=== PATIENT | male | born 1990 | race Caucasian/White ===

== ENCOUNTER 2023-12-31 11:12 | Outpatient (REF) | payer SELFPAY ==
[2023-12-31 14:50] LABS: Cholesterol 247 mg/dL (<200); HDL Cholesterol 49 mg/dL (>40); LDL Cholesterol Calculated 147 mg/dL (<100); Triglycerides 258 mg/dL (<150)
[2024-01-01 05:15] LABS: HIV AB/AG Nonreactive (Nonreactive); HIV Num 1 0.04 S/CO (0.00-0.99); ~HepC Num1 0.06 S/CO (0.00-0.79); ~Hepatitis C Antibody Nonreactive (Nonreactive)
[2024-01-02 12:38] LABS: RPR Rapid Plasma Reagin NON-REACTIVE (NON-REACTIVE)
[2024-01-03 07:24] LABS: TS Negative Control Passed; TS Panel A 0; TS Panel B 1; TS Positive Control Passed; TSpotTB Negative (Negative)
== END 2023-12-31 11:13 | disposition home or self-care (01) ==
LOC: HO.HHCL 11:12
PROVIDERS: Visit Provider General Practice
DX: Z00.00 Encounter for general adult medical examination without abnormal findings (principal)
CPT/HCPCS: 36415; 80061; 86481; 86592; 86803; 87389

== ENCOUNTER 2024-02-03 10:15 | Outpatient (REF) | payer MEDICAID, SELFPAY ==
--- NOTE | ~2024-02-03 | US_ITS ---
EXAMINATION: US ABDOMEN COMPLETE CLINICAL INFORMATION: History of fatty liver and transaminitis. COMPARISON: None available. TECHNIQUE: Real-time imaging of the abdominal viscera. FINDINGS: PANCREAS: Normal. ABDOMINAL AORTA: The proximal, mid, and distal segments are normal in caliber. INFERIOR VENA CAVA: Visualized portions are normal. LIVER: The liver is normal in size. The liver contour is normal. There is slightly increased liver parenchymal echogenicity. No focal hepatic lesion. There is no intrahepatic biliary duct dilatation seen. GALLBLADDER: Normal. The gallbladder is physiologically distended without evidence of stones, sludge, polyps, wall thickening or pericholecystic fluid. COMMON BILE DUCT: Normal in caliber measuring 0.4 cm in diameter. RIGHT KIDNEY: Normal. No hydronephrosis. No renal calculi or focal parenchymal lesions. The kidney measures 9.1 cm in maximum dimension. LEFT KIDNEY: Normal. No hydronephrosis. No renal calculi or focal parenchymal lesions. The kidney measures 10.5 cm in maximum dimension. SPLEEN: Normal. The spleen measures 10.1 cm in maximum dimension. FREE FLUID: None. US/US abdomen complete IMPRESSION: There is slight increase in hepatic echotexture, consistent with fatty infiltration or hepatocellular disease. Please correlate clinically. No focal hepatic mass or intrahepatic biliary dilatation is seen. Electronically signed by: Hamzah Kennedy MD 03/04/2024 04:25 PM EST
== END 2024-02-03 10:16 | disposition home or self-care (01) ==
LOC: HO.HMGCX 10:15
PROVIDERS: PCP General Practice; Visit Provider General Practice
DX: K76.0 Fatty (change of) liver, not elsewhere classified (principal)
CPT/HCPCS: 76700

== ENCOUNTER 2024-11-09 11:07 | Outpatient (REF) | payer MEDICAID, SELFPAY ==
--- OUTSIDE RECORDS SUMMARY | 2024-11-10 12:10 | XMS_ITS | Patient Health Record ---
[facility] Organization [facility] Address [address] [place] [address] [address] [place] [address] Care Team Providers Care Watchguard Name Role Phone KING BURNS Primary Care Provider [phone] Reason For Referral No Information Medications Medication SIG (Take, Route, Fr equency, Duration) Notes Start Date End Date Status Adderall 10 MG 1 tablet Orally Once a day; Duration: 28 days 05/07/2019 Active Social History Tobacco Use: Social History Observation Description Date Details (start date - stop date) Never Smoker NA - NA Tobacco Use/Smoking Question Answer Notes Are you a nonsmoker Alcohol Screen (Audit-C) Question Answer Notes Did you have a drink containing alcohol in the p ast year? No Points 0 Interpretation Negative Problems Problem Type SNOMED Code ICD Code Onset Dates Problem Status W/U Status Risk Notes Problem Attention deficit hyperactivity disorder (585508536) Attention-deficit hyperactivity disorder, unspecified type (F90.9) Active confirmed Problem Adult health examination (523005100) Encounter for general adult medical examination without abnormal findings (Z00.00) Active confirmed Problem Sexually transmitted infectious disease (2754526) Encounter for screening for infections with a predominantly sexual mode of transmission (Z11.3) Active confirmed Plan Of Treatment Pending Test Test Name Order Date CHLAMYDIA / GC DNA W RFLX 12/18/2017 Future Test Test Name Order Date COMPREHENSIVE METABOLIC PANEL 11/29/2019 LIPID PANEL 11/29/2019 Insurance Providers Payer Name Payer Address Payer Phone Subscriber Number Group Number Insured Name Patient Relationship to Insured Coverage Start Date Coverage End Date [facility] I [address] [address] [place] [address] [id number] Ray Grossman Self - patient is the insured [place] [address] [place] [address] [id number] Ray Grossman Self - patient is the insured Medical (General) History Hospitalization History Reason Date(Month/Year)
--- OUTSIDE RECORDS SUMMARY | 2024-11-10 12:10 | XMS_ITS | Encounter Summary ---
Author Organization [employer] Address [address] [facility] [address] [place] [address] Care Team Providers Care Bakeshop Cleaner Name Role Phone Mandie Kong MD Primary Care Provider [phone] Reason for Visit * Reason Onset Date Comments Med Refill 05/28/2024 Encounter Details Date Type Department Care Team ([facility] st Contact Info) Description 05/28/2024 Refill [facility] [address] [place], [place] [phone] Mandie Kong MD [address] [place], [place] [phone] Attention deficit hyperactivity disorder (ADHD), combined type Social History Tobacco Use Types Packs/Day Years Used Date Smoking Tobacco: Every Day Cigarettes Smokeless Tobacco: Never Alcohol Use Standard Drinks/Week Comments Never 0 (1 standard drink = 0.6 oz pur e alcohol) Depression Answer Date Recorded Patient Health Questionnaire-9 Score 0 12/31/2023 Patient Health Questionnaire-9 Score 0 12/31/2023 Last PHQ-9: Questionnaire Data Not on file 0 12/31/2023 Housing Stability Answer Date Recorded What is your housing situation today? I have [place] 12/31/[address] you li ve. Do you have problems with any of the following? None of the above 12/31/2023 Food Insecurity Answer Date Recorded Within the past 12 months, y ou worried that your food would run out before you got money to buy more: Never True 12/31/2023 Within the past 12 months,th e food you bought just didn't last and you didn't have enough money to get more: Never True 02/2024 Transportation Answer Date Recorded In the past 12 months, has l ack of transportation kept you from medical appts, meetings, work or from getting things needed for daily living? Yes, it has kept me from medical appointments or getting medications. 12/31/2023 Utilities Answer Date Recorded In the past 12 months, has t he electric, gas, oil or water company threatened to shut off services in your home? No 12/31/2023 Depression Answer Date Recorded Patient Health Questionnaire-2 Score 0 12/31/2023 Internet Access Answer Date Recorded Internet Access Q1 Yes 12/31/2023 Internet Access Q2 Not on file 12/31/2023 Sex and Gender Information Value Date Recorded Sex Assigned at Male 12/31/2023 10:13 AM EDT Legal Sex Male 3:00 PM EDT Gender Identity Male 12/31/2023 10:13 AM EDT Sexual Orientation Straight 12/31/2023 10 :13 AM EDT documented as of this encounter Miscellaneous Notes * Telephone Encounter - Mandie Kong MD - 05/31/2024 1:08 PM EST Refill not appropriate, he picked up 60 tabs 04/30/24, next refill due 06/28/24 documented in this encounter Plan of Treatment Not on file documented as of this encounter Visit Diagnoses Diagnosis Attention deficit hyperactivity disorder (ADHD), combined type documented in this encounter Additional Health Concerns Assessment Noted Time PHQ-9 Depression Total Score: 0 12/31/19 24 10:29 AM EDT documented as of this encounter Care Teams Bakeshop Cleaner Relationship Specialty Start Date End Date Mandie Kong MD [address] [place] [phone] PCP - General Family Medicine 12/19/23 documented as of this encounter
== END 2024-11-09 11:08 | disposition home or self-care (01) ==
LOC: HO.HHCLNP 11:07
PROVIDERS: Visit Provider General Practice
DX: L60.3 Nail dystrophy (principal)
CPT/HCPCS: 87101; 87107; 87220